=== PATIENT | male | born 1960 | race Caucasian/White ===

== ENCOUNTER → 2016-08-12 | Outpatient (CLI) | payer OTHER ==
[2016-08-12 13:55] LABS: MEAN CORPUSCULAR HEMOGLOBIN 29.7 pg (27.0-33.0); MEAN CORPUSCULAR HGB CONC 34.6 g/dl (32.0-36.5); MEAN CORPUSCULAR VOLUME 85.8 fl (80.0-96.0); RED CELL DISTRIBUTION WIDTH 13.2 % (11.5-14.5); WHITE BLOOD COUNT 6.4 K/mm3 (4.0-10.0)
[2016-08-12 14:36] LABS: ERYTHROCYTE SEDIMENTATION RATE 46 mm/hr (0-20)
[2016-08-12 16:17] LABS: EOSINOPHILS 7 % (0-5)
== END ==
LOC: M WUC 11:44
PROVIDERS: ATTEND Physician Assistant
DX: R21 Rash and other nonspecific skin eruption (principal)

== ENCOUNTER → 2017-02-07 | Outpatient (REF) | payer OTHER ==
[2017-02-07 13:05] LABS: PERCENT SATURATION 31.4 % (19.7-37.4)
[2017-02-07 13:09] LABS: FOLATE 12.5 NG/ML
[2017-02-07 13:27] LABS: RETIC HEMOGLOBIN CONTENT CHr 32.1 PG (24-36); RETICULOCYTE % 1.8 % (0.5-1.5)
== END ==
LOC: M LAB REF 12:08
PROVIDERS: ATTEND Family Medicine
DX: D64.9 Anemia, unspecified (principal)

== ENCOUNTER → 2018-07-19 | Outpatient (REF) | payer OTHER | LOC: M LAB REF 16:22 | PROVIDERS: ATTEND Family Medicine | DX: D64.9 Anemia, unspecified (principal) ==

== ENCOUNTER → 2020-02-06 | Outpatient (CLI) | payer SELFPAY | LOC: M LABSMTC 12:46 | PROVIDERS: ATTEND Pediatrics | DX: Z03.818 Encounter for observation for suspected exposure to other biological agents ruled out (principal); Z11.59 Encounter for screening for other viral diseases ==

== ENCOUNTER → 2021-12-22 | Outpatient (REF) | payer MEDICARE, OTHER | LOC: M LAB REF 11:53 | PROVIDERS: ATTEND Family Medicine | DX: R74.8 Abnormal levels of other serum enzymes (principal) ==

== ENCOUNTER → 2022-04-17 | Outpatient (CLI) | payer MEDICARE, BC, OTHER | LOC: M LABSMTC 09:59 | PROVIDERS: ATTEND Anesthesiology | DX: Z01.812 Encounter for preprocedural laboratory examination (principal); Z20.822 Contact with and (suspected) exposure to COVID-19 ==

== ENCOUNTER 2022-04-21 06:39 | Day surgery (SDC) | payer MEDICARE, BC, OTHER ==
[~2022-04-21] VITALS: Ht 185.4 cm; Wt 136.9 kg
[~2022-04-21 06:39] MED LIST: AMLO1TAB25 PO; ATOR1TAB21 PO; D200CAP3 PO; ECOT81TA5 PO; FLUTISP NARES; KP F1200 PO; LEVO200T4 PO; LISI20TA37 PO; NS 1,000 ML IV ONE; REST0.05 OU; TERA5CAP3 PO; ZOLO100T PO
[2022-04-21] MEDS ORDERED: propofoL 200 MG/20 ML VIAL As Ordered ONE (08:01)
[2022-04-21 08:14] VITALS: BP 130/85
== END 2022-04-21 08:16 | disposition home or self-care (01) ==
LOC: M OPP 06:39
PROVIDERS: ATTEND Surgery
DX: Z12.11 Encounter for screening for malignant neoplasm of colon (principal); Z79.02 Long term (current) use of antithrombotics/antiplatelets; Z79.82 Long term (current) use of aspirin; Z79.899 Other long term (current) drug therapy; Z79.51 Long term (current) use of inhaled steroids; Z99.89 Dependence on other enabling machines and devices; G47.30 Sleep apnea, unspecified; I10 Essential (primary) hypertension; E03.9 Hypothyroidism, unspecified; F41.9 Anxiety disorder, unspecified

== ENCOUNTER 2025-02-13 11:40 | Observation (INO) | payer MEDICARE, BC, OTHER ==
[~2025-02-13] VITALS: Ht 182.9 cm; Wt 133.6 kg
[~2025-02-13 11:40] MED LIST changes: -NS 1,000 ML IV ONE
[2025-02-13 12:27] LABS: BASO # 0.0 10^3/uL (0.0-0.2); BASO % 0.7 % (0.0-1.0); EOS # 0.2 10^3/uL (0.0-0.5); EOS % 3.1 % (0.0-3.0); LYMPH # 1.4 10^3/uL (1.5-5.0); LYMPH % 25.5 % (24.0-44.0); MONO # 0.6 10^3/uL (0.0-0.8); MONO % 10.9 % (2.0-8.0); NEUTROPHILS # 3.3 10^3/uL (1.5-8.5); NEUTROPHILS % 59.6 % (36.0-66.0); PLATELET COUNT, AUTOMATED 248 10^3/uL (150-450)
[2025-02-13 13:19] LABS: CK-MB VALUE MASS < 1.0 NG/ML (<3.6)
[2025-02-13 13:20] LABS: CPK CREATINE PHOSPHOKINASE 46 U/L (46-171)
[2025-02-13 13:21] LABS: CALCIUM LEVEL 9.2 MG/DL (8.3-10.6); CARBON DIOXIDE LEVEL 26 MMOL/L (20-31); CHLORIDE LEVEL 105 MMOL/L (98-107); CREATININE FOR GFR 0.84 MG/DL (0.70-1.30); GLOMERULAR FILTRATION RATE > 90.0 (>49); POTASSIUM SERUM 4.1 MMOL/L (3.5-5.1); SODIUM LEVEL 142 MMOL/L (136-145)
[2025-02-13 13:56] LABS: MAGNESIUM LEVEL 1.9 MG/DL (1.8-2.4); PHOSPHORUS LEVEL 3.4 MG/DL (2.4-5.1)
[2025-02-13 14:08] LABS: CK-MB VALUE MASS < 1.0 NG/ML (<3.6); CPK CREATINE PHOSPHOKINASE 63 U/L (46-171); FREE T4 1.37 NG/DL (0.89-1.76)
[2025-02-13] MEDS: NS 500 ML IV ONE (14:19)
[2025-02-13] MEDS ORDERED: LEVO175T2 PO (14:24)
[2025-02-13] MEDS ORDERED: THERTAB52 PO (14:24)
[2025-02-13] MEDS ORDERED: TIRZ2.5P SQ (14:24)
[2025-02-13] MEDS ORDERED: PERF3DRO OU (14:24)
[2025-02-13] MEDS ORDERED: CETI-24 PO (14:24)
[2025-02-13] MEDS ORDERED: HOME MED LIST COMPLETE! XX SCH (14:30)
[2025-02-13] MEDS: ONDANSETRON 4MG 2ML VIAL IV ONE (14:31)
[2025-02-13] MEDS: LR 1,000 ML IV ONE ×2 (17:00→19:28)
[2025-02-13] MEDS ORDERED: SENNOSIDES/DOCUSATE SODIUM 8.6 MG/50MG TAB PO PRN (17:10)
[2025-02-13] MEDS ORDERED: MOM 30 ML SUSPENSION UDC PO PRN (17:10)
[2025-02-13] MEDS ORDERED: ONDANSETRON 4MG 2ML VIAL IV PRN (17:10)
[2025-02-13] MEDS ORDERED: OMEP-173 PO (17:16)
[2025-02-13] MEDS ORDERED: ELIQ5TAB PO (17:16)
[2025-02-13 17:38] VITALS: BP 117/84; TEMP 97.7; O2SAT 97
[2025-02-13 18:10] LABS: KETONE, URINE AUTO RFX NEGATIVE (NEGATIVE); LEUKOCYTE ESTERASE UR AUTO RFX NEGATIVE (NEGATIVE); NITRITE, URINE AUTO RFX NEGATIVE (NEGATIVE); RBC, URINE AUTO RFX 0 /HPF (0-3); SQUAM EPITHELIAL CELL UR AURFX 0 /HPF (0-6); WBC, URINE AUTO RFX 0 /HPF (0-3)
[2025-02-13] MEDS: ATENOLOL 12.5 MG PER 1/2 TABLET PO ONE (18:20)
[2025-02-13] MEDS: MIDODRINE 5 MG TAB PO SCH (18:21)
[2025-02-13] MEDS ORDERED: ISOVUE-370 76% 100 ML VIAL As Ordered ONE (19:50)
[2025-02-13 19:53] LABS: INR 1.01
[2025-02-13] MEDS: FLUTICASONE PROPIONATE 0.05% NASAL SPRAY 16 GM NARES SCH (21:00)
[2025-02-13] MEDS: APIXABAN 5 MG TAB PO SCH (21:14)
[2025-02-13 23:23] VITALS: BP 107/71; TEMP 97.2; O2SAT 97
[2025-02-14 04:18] VITALS: BP 113/67; TEMP 97; O2SAT 98
[2025-02-14 04:55] LABS: PLATELET COUNT, AUTOMATED 227 10^3/uL (150-450)
[2025-02-14 05:13] LABS: ESTIMATED AVERAGE GLUCOSE 91.0 MG/DL (60-110)
[2025-02-14 05:22] LABS: CALCIUM LEVEL 8.7 MG/DL (8.3-10.6); CARBON DIOXIDE LEVEL 25 MMOL/L (20-31); CHLORIDE LEVEL 107 MMOL/L (98-107); CHOLESTEROL LEVEL 134 MG/DL (<200); CHOLESTEROL RISK RATIO 3.77 (<5); CREATININE FOR GFR 0.82 MG/DL (0.70-1.30); GLOMERULAR FILTRATION RATE > 90.0 (>49); LDL CHOLESTEROL 81.3 MG/DL (<100); NON-HDL-C 98.5 MG/DL; POTASSIUM SERUM 4.1 MMOL/L (3.5-5.1); SODIUM LEVEL 144 MMOL/L (136-145); TRIGLYCERIDES LEVEL 86 MG/DL (<150)
[2025-02-14 05:24] LABS: THYROXINE (T4) 5.1 UG/DL (4.5-10.9)
[2025-02-14 05:27] LABS: T UPTAKE 51.3 % (22.5-37.0)
[2025-02-14] MEDS: LEVOTHYROXINE 88 MCG TABLET (0.088 MG) PO SCH (05:59)
[2025-02-14] MEDS: LR 1,000 ML IV ONE (06:16)
[2025-02-14 07:27] VITALS: BP 112/60; TEMP 98.1; O2SAT 95
[2025-02-14] MEDS: ACETAMINOPHEN 325 MG TAB PO PRN (08:35)
[2025-02-14 08:36] VITALS: BP 112/60
[2025-02-14] MEDS: ASPIRIN 81 MG ENTERIC TABLET PO SCH (08:36)
[2025-02-14] MEDS: SERTRALINE 100 MG TAB PO SCH (08:36)
[2025-02-14] MEDS: TERAZOSIN 5MG CAPSULE PO SCH (08:36)
[2025-02-14] MEDS: ATENOLOL 12.5 MG PER 1/2 TABLET PO SCH (08:36)
[2025-02-14] MEDS: OMEPRAZOLE 20MG CAP PO SCH (08:37)
[2025-02-14] MEDS: CETIRIZINE 10 MG TAB PO SCH (08:37)
[2025-02-15] MEDS ORDERED: ATORVASTATIN 20 MG TAB PO SCH (09:00)
[2025-02-15] MEDS ORDERED: ATEN25TA PO (11:26)
== END 2025-02-14 12:05 | disposition home or self-care (01) ==
LOC: EDBD 11:40 → M ED 11:40 → M ED INP 11:41 → M PCU 17:34
PROVIDERS: ADMIT General Practice; ATTEND General Practice
DX: I48.91 Unspecified atrial fibrillation (principal); I95.2 Hypotension due to drugs; T46.4X5A Adverse effect of angiotensin-converting-enzyme inhibitors, initial encounter; T50.2X5A Adverse effect of carbonic-anhydrase inhibitors, benzothiadiazides and other diuretics, initial encounter; E86.0 Dehydration; E03.9 Hypothyroidism, unspecified; R94.6 Abnormal results of thyroid function studies; F41.9 Anxiety disorder, unspecified; R07.9 Chest pain, unspecified; R42 Dizziness and giddiness; R11.0 Nausea; H53.8 Other visual disturbances; I10 Essential (primary) hypertension; E78.00 Pure hypercholesterolemia, unspecified; E66.813 Obesity, class 3; Z68.41 Body mass index [BMI] 40.0-44.9, adult; K21.9 Gastro-esophageal reflux disease without esophagitis; G47.33 Obstructive sleep apnea (adult) (pediatric); J30.9 Allergic rhinitis, unspecified; N40.0 Benign prostatic hyperplasia without lower urinary tract symptoms; Z82.49 Family history of ischemic heart disease and other diseases of the circulatory system; Z79.899 Other long term (current) drug therapy; Z79.01 Long term (current) use of anticoagulants; Z79.82 Long term (current) use of aspirin; Z79.890 Hormone replacement therapy
CPT/HCPCS: 36415; 70450; 70496; 70498; 70551; 71045; 80047; 80048; 80061; 81001; 82550; 82553; 83036; 83735; 84100; 84436; 84439; 84443; 84479; 84484; 85025; 85027; 85610; 85730; 87486; 87581; 87633; 87798; 93005; 93041; 93306; 94760; 96361; 96374; 97161; 99285; J2405; Q9967

== ENCOUNTER 2025-07-04 16:40 | Emergency (ER) | payer MEDICARE, BC, OTHER ==
[~2025-07-04] VITALS: Ht 182.9 cm; Wt 135.9 kg
[~2025-07-04 16:40] MED LIST changes: +ATEN25TA PO; +CETI-24 PO; +ELIQ5TAB PO; +LEVO175T2 PO; +OMEP-173 PO; +PERF3DRO OU; +THERTAB52 PO; +TIRZ2.5P SQ
[2025-07-04 17:08] LABS: BASO # 0.1 10^3/uL (0.0-0.2); BASO % 1.2 % (0.0-1.0); EOS # 0.2 10^3/uL (0.0-0.5); EOS % 3.0 % (0.0-3.0); LYMPH # 2.5 10^3/uL (1.5-5.0); LYMPH % 32.2 % (24.0-44.0); MONO # 0.7 10^3/uL (0.0-0.8); MONO % 9.2 % (2.0-8.0); NEUTROPHILS # 4.2 10^3/uL (1.5-8.5); NEUTROPHILS % 54.3 % (36.0-66.0); PLATELET COUNT, AUTOMATED 251 10^3/uL (150-450)
[2025-07-04 17:30] LABS: INR 1.08
[2025-07-04 17:42] LABS: ALT/SGPT 36.0 U/L (7.0-40); AST/SGOT 24.0 U/L (<34); CALCIUM LEVEL 9.4 MG/DL (8.3-10.6); CARBON DIOXIDE LEVEL 28.0 MMOL/L (20-31); CHLORIDE LEVEL 105.0 MMOL/L (98-107); CREATININE FOR GFR 0.97 MG/DL (0.70-1.30); GLOMERULAR FILTRATION RATE 87.7 (>49); POTASSIUM SERUM 3.9 MMOL/L (3.5-5.1); SODIUM LEVEL 142.0 MMOL/L (136-145)
[2025-07-04 17:44] LABS: FREE T4 1.24 NG/DL (0.89-1.76)
[2025-07-04 19:18] LABS: MAGNESIUM LEVEL 2.0 MG/DL (1.8-2.4)
[2025-07-04] MEDS ORDERED: LOSA100T46 (20:23)
[2025-07-04] MEDS ORDERED: SERT50TA29 PO (20:23)
[2025-07-04] MEDS ORDERED: PERF3DRO OU (20:23)
[2025-07-04] MEDS: AMIODARONE HCL 150 MG in IV 1 EA IV SCH (20:49)
[2025-07-04] MEDS ORDERED: AMIO0.1T PO (21:03)
[2025-07-04 21:15] VITALS: BP 146/93
[2025-07-04 21:22] VITALS: TEMP 96.1; O2SAT 98
== END 2025-07-04 21:35 | disposition home or self-care (01) ==
LOC: EDBD 16:40 → M ED 16:40
DX: I48.91 Unspecified atrial fibrillation (principal); I10 Essential (primary) hypertension; E78.5 Hyperlipidemia, unspecified; G47.33 Obstructive sleep apnea (adult) (pediatric); E03.9 Hypothyroidism, unspecified; N40.0 Benign prostatic hyperplasia without lower urinary tract symptoms; K21.9 Gastro-esophageal reflux disease without esophagitis; F10.10 Alcohol abuse, uncomplicated; Z79.01 Long term (current) use of anticoagulants; Z79.899 Other long term (current) drug therapy; Z79.810 Long term (current) use of selective estrogen receptor modulators (SERMs)
CPT/HCPCS: 71045; 80048; 80076; 83690; 83735; 84439; 84443; 85025; 85610; 93005; 93041; 94760; 96374; 99285; J0282